=== PATIENT | female | born 1960 | race American Indian/Alaskan Native ===

== ENCOUNTER 2020-07-25 18:02 | Inpatient (IN) | payer OTHER ==
--- NOTE | 2020-07-25 18:08 | Emergency Department Report ---
Blank Doc - Documentation Documentation: 59-year-old female that presents with chest tightness and shortness of breath. Tachycardia and hypertensive in triage. 1- This initial assessment/diagnostic orders/clinical plan/ treatment(s) is/are subject to change based on pt's health status, clinical progression and re-as sessment by fellow clinical providers in the ED. Further treatment and workup at subsequent clinical provers discretion. Patient/guardians urged not to elope from ED as their condition may be serious if not clinically assessed and managed. 2-cardiac work-up
[2020-07-25 18:50] LABS: Alanine Aminotransferase 12 units/L (7-56); Albumin 4.4 g/dL (3.9-5); BUN/Creatinine Ratio 10; Blood Urea Nitrogen 10 mg/dL (7-17); Calcium 9.7 mg/dL (8.4-10.2); Hemolysis Index 4
[2020-07-25 18:54] LABS: Basophils % (Auto) 0.9 % (0.0-1.8); Eosinophils # (Auto) 0.1 K/mm3 (0.0-0.4); Eosinophils % (Auto) 1.5 % (0.0-4.3); Hematocrit 34.9 % (30.3-42.9); Hemoglobin 11.5 gm/dl (10.1-14.3); Lymphocytes # (Auto) 1.7 K/mm3 (1.2-5.4); Lymphocytes % (Auto) 45.6 % (13.4-35.0); Mean Corpuscular HGB Conc 33 % (30-34); Mean Corpuscular Volume 88 fl (79-97); Monocytes # (Auto) 0.3 K/mm3 (0.0-0.8); Monocytes % (Auto) 6.8 % (0.0-7.3); Platelet Count 176 K/mm3 (140-440); Red Blood Count 3.99 M/mm3 (3.65-5.03); Red Cell Distribution Width 14.5 % (13.2-15.2)
[2020-07-25 19:09] LABS: INR 1.07 (0.87-1.13)
[2020-07-25 19:10] LABS: Partial Thromboplastin Time 27.6 Sec. (24.2-36.6)
--- NOTE | 2020-07-25 20:32 | XRay Report ---
CHEST 2 VIEWS INDICATION / CLINICAL INFORMATION: Chest Pain. COMPARISON: None available. FINDINGS: SUPPORT DEVICES: None. HEART / MEDIASTINUM: There is moderate cardiomegaly with a left ventricular configuration. Pulmonary vasculature is normal. There is mild aortic tortuosity without aneurysm. LUNGS / PLEURA: No significant pulmonary or pleural abnormality. No pneumothorax. ADDITIONAL FINDINGS: No significant additional findings. IMPRESSION: Moderate cardiomegaly without acute pulmonary disease. Signer Name: Deshawn Martel MD Signed: 07/25/2020 8:27 PM Workstation Name: [id number]
--- NOTE | 2020-07-25 23:43 | Emergency Department Report ---
ED Shortness of Breath HPI - General Chief Complaint: Dyspnea/Respdistress Stated Complaint: TIERRA Time Seen by Provider: 07/25/20 23:28 Source: patient Mode of arrival: Ambulatory Limitations: No Limitations - History of Present Illness Initial Comments: Patient is a 59-year-old female who presents emergency room with complaints of shortness of breath x2 weeks. Patient states her symptoms are worsening. Patient states her shortness of breath is better with rest and worse with exertion. Patient states she is having dyspnea on exertion. Patient denies chest pain. Patient states she has history of high blood pressure and is noncompliant with her blood pressure medication. Patient that she lost her insurance 6 months ago and has not seen a doctor since. Patient denies headache. Patient denies blurry vision. Patient denies neck stiffness. Patient denies chest pain. Patient denies fever and chills. Patient denies cough. Patient denies recent travel. Patient denies recent international travel. Patient denies exposure to the novel coronavirus. Patient denies sick contacts. Patient denies fever and chills. Patient denies cough. Patient denies diarrhea. Patient denies coming in contact with anybody with symptoms of the novel coronavirus. -: Gradual, week(s) Severity: severe Consistency: constant Improves With: rest Worsens With: exertion Context: medication noncompliance - Related Data Allergies Allergy/AdvReac Type Severity Reaction Status Date / Time No Known Allergies Allergy Verified 07/26/20 04:47 ED Review of Systems ROS: Stated complaint: TIERRA Other details as noted in HPI Constitutional: denies: chills, fever Eyes: denies: eye pain, eye discharge, vision change ENT: denies: ear pain, throat pain Respiratory: shortness of breath, SOB with exertion, SOB at rest. denies: cough, wheezing Cardiovascular: as per HPI, dyspnea on exertion. denies: chest pain, palpitations Endocrine: no symptoms reported Gastrointestinal: denies: abdominal pain, nausea, diarrhea Genitourinary: denies: urgency, dysuria, discharge Musculoskeletal: denies: back pain, joint swelling, arthralgia Skin: denies: rash, lesions Neurological: denies: headache, weakness, paresthesias Psychiatric: denies: anxiety, depression Hematological/Lymphatic: denies: easy bleeding, easy bruising ED Past Medical Hx - Past Medical History Previous Medical History?: Yes Hx Hypertension: Yes - Surgical History Past Surgical History?: Yes Additional Surgical History: CSECTION - Family History Family history: no significant - Social History Smoking Status: Never Smoker Substance Use Type: None ED Physical Exam - General Limitations: No Limitations General appearance: alert, in no apparent distress - Head Head exam: Present: atraumatic, normocephalic - Eye Eye exam: Present: normal appearance - ENT ENT exam: Present: mucous membranes moist - Neck Neck exam: Present: normal inspection - Respiratory Respiratory exam: Present: normal lung sounds bilaterally. Absent: respiratory distress, chest wall tenderness - Cardiovascular Cardiovascular Exam: Present: regular rate, normal rhythm. Absent: systolic murmur, diastolic murmur, rubs, gallop - GI/Abdominal GI/Abdominal exam: Present: soft, normal bowel sounds - Extremities Exam Extremities exam: Present: normal inspection - Back Exam Back exam: Present: normal inspection - Neurological Exam Neurological exam: Present: alert, oriented X3 - Psychiatric Psychiatric exam: Present: normal affect, normal mood - Skin Skin exam: Present: warm, dry, intact, normal color. Absent: rash ED Course Vital Signs 07/25/20 07/25/20 07/25/20 18:07 21:16 21:30 Temperature 98.3 F Pulse Rate 114 H Respiratory 20 Rate Blood Pressure 189/131 O2 Sat by Pulse 96 88 91 Oximetry 07/25/20 07/25/20 07/26/20 22:45 23:52 00:00 Temperature Pulse Rate 100 H 95 H Respiratory 20 14 Rate Blood Pressure 147/99 147/99 198/132 O2 Sat by Pulse 96 97 Oximetry 07/26/20 07/26/20 07/26/20 00:30 01:00 01:25 Temperature Pulse Rate 97 H 101 H Respiratory 18 37 H 18 Rate Blood Pressure 204/135 204/135 O2 Sat by Pulse 95 94 Oximetry 07/26/20 07/26/20 07/26/20 02:00 03:00 04:12 Temperature Pulse Rate 109 H Respiratory 30 H Rate Blood Pressure 190/129 182/143 195/139 O2 Sat by Pulse 97 94 Oximetry - Reevaluation(s) Reevaluation #1: Patient's blood pressure was initially high and then improved on its own. We will continue to monitor blood pressure. 07/26/20 00:06 Reevaluation #2: Patient's blood pressure increased again and the patient was given IV Lasix. Patient found to have an elevated D-dimer and BNP. Patient will have a CTA. 07/26/20 01:50 Reevaluation #3: Patient received IV Lasix. Patient states he is diuresing and urinating a lot. Patient states her shortness of breath and dyspnea on exertion has improved. I discussed all results with patient. I discussed plan of care with patient. Patient agrees with plan of care and admission. Patient to be admitted to the hospitalist service. 07/26/20 04:07 - Consultations Consultation #1: Hospitalist consulted for admission. Hospitalist to admit patient. 07/26/20 04:07 ED Medical Decision Making - Lab Data Result diagrams: 07/25/20 18:15 07/25/20 18:15 - EKG Data -: EKG Interpreted by Me EKG shows normal: sinus rhythm, intervals, QRS complexes, ST-T waves Rate: tachycardia - EKG Data Interpretation: LVH, other (Patient in bigeminy, PVCs, axis deviation) - Radiology Data Radiology results: report reviewed, image reviewed interpreted by me: Chest x-ray: No pneumonia, no pneumothorax, no foreign body, no osseous findings, no acute findings, cardiomegaly noted. CHEST 2 VIEWS INDICATION / CLINICAL INFORMATION: Chest Pain. COMPARISON: None available. FINDINGS: SUPPORT DEVICES: None. HEART / MEDIASTINUM: There is moderate cardiomegaly with a left ventricular configuration. Pulmonary vasculature is normal. There is mild aortic tortuosity without aneurysm. LUNGS / PLEURA: No significant pulmonary or pleural abnormality. No pneumothorax. ADDITIONAL FINDINGS: No significant additional findings. IMPRESSION: Moderate cardiomegaly without acute pulmonary disease. CTA CHEST HISTORY: Chest Pain. COMPARISON: None TECHNIQUE: Routine chest CT angiogram performed utilizing intravenous contrast. MIP/3D reformats were post-processed. CONTRAST: 100 ml of Omnipaque 350 FINDINGS: Heart and Pericardium: Cardiomegaly with reflux into the IVC and hepatic veins. Mild coronary artery calcification. Pulmonary Arteries: Diagnostic pulmonary artery opacification. No significant respiratory motion. No pulmonary emboli seen. Thoracic Aorta: Mildly dilated measuring 3.8 cm. No dissection flap Lymphatics: Prominent tissue at the left anterior mediastinum. Lungs: Mosaic attenuation. Slightly more localized consolidation at the left base medially. Mild vascular congestion. Trachea and Bronchi: No significant abnormality. Osseous Structures: No significant abnormality. Additional Findings: None IMPRESSION: 1. Overall diagnostic examination. Negative for pulmonary embolism. 2. Negative for dissection. Prominent descending thoracic aorta. 3. Mosaic attenuation is likely on the basis of air trapping. Mosaic attenuation is most commonly seen in the setting of air trapping. 4. Suspected mild edema. 5. Possible mild pneumonia right base. 6. Prominent tissue anterior mediastinum. This may be in part due to venous collaterals. Follow-up standard CT chest with contrast is recommended for more complete evaluation. 7. Cardiomegaly with increased central venous pressure and reflux into the IVC/hepatic veins. - Medical Decision Making Patient is a 59-year-old female that presents emergency room with complaints of shortness of breath dyspnea on exertion. Patient's blood pressures also been untreated for many months. Patient had a EKG and chest x-ray. Patient EKG showed trigeminy, LVH but no acute findings and no ST changes. Patient's EKG was abnormal. Patient's chest x-ray showed cardiomegaly no other acute findings. I personally reviewed the EKG and chest x-ray. Patient had labs done which were essentially unremarkable except for an elevated D-dimer and BNP. Patient BNP was 4000. Patient's had a CT angio of the chest to rule out PE since the patient had an elevated D-dimer, shortness of breath and tachycardia. Patient CTA was negative for PE, positive for CHF changes, pulmonary edema and a right-sided pneumonia.. Patient given IV antibiotics. Patient given IV Lasix. Patient admitted to the hospitalist service for further evaluation treatment. Critical care time documented due to the multiple reassessments, prolonged time at the bedside, interpretation of diagnostics and labs. - Differential Diagnosis Shortness of breath, CHF, PE, hypertensive urgency Critical Care Time: Yes Critical care time in (mins) excluding proc time.: 35 Critical care attestation.: If time is entered above; I have spent that time in minutes in the direct care of this critically ill patient, excluding procedure time. Critical Care Time: 35 minutes ED Disposition Clinical Impression: Cardiomegaly, Elevated brain natriuretic peptide (BNP) level, SOB (shortness of breath), MARTI (dyspnea on exertion), Abnormal EKG, Trigeminy, Pulmonary edema cardiac cause, New onset of congestive heart failure, Hypertensive urgency, malignant CHF (congestive heart failure) Qualifiers: Heart failure type: unspecified Heart failure chronicity: acute Qualified Code(s): I50.9 - Heart failure, unspecified Pneumonia Qualifiers: Pneumonia type: due to unspecified organism Laterality: right Lung location: unspecified part of lung Qualified Code(s): J18.9 - Pneumonia, unspecified organism Disposition: 09 OP ADMIT IP TO THIS HOSP Is pt being admited?: Yes Does the pt Need Aspirin: No Condition: Critical Instructions: Pulmonary Edema (ED), Bacterial Pneumonia (ED) Time of Disposition: 04:08
[2020-07-26] MEDS ORDERED: FUROSEMIDE 40 MG/4 ML INJ IV ONE (01:43)
--- NOTE | 2020-07-26 04:04 | Cat Scan Report ---
CTA CHEST HISTORY: Chest Pain. COMPARISON: None TECHNIQUE: Routine chest CT angiogram performed utilizing intravenous contrast. MIP/3D reformats wer e post-processed. CONTRAST: 100 ml of Omnipaque 350 FINDINGS: Heart and Pericardium: Cardiomegaly with reflux into the IVC and hepatic veins. Mild coronary artery calcification. Pulmonary Arteries: Diagnostic pulmonary artery opacification. No significant respiratory motion. No pulmonary emboli seen. Thoracic Aorta: Mildly dilated measuring 3.8 cm. No dissection flap Lymphatics: Prominent tissue at the left anterior mediastinum. Lungs: Mosaic attenuation. Slightly more localized consolidation at the left base medially. Mild vasc ular congestion. Trachea and Bronchi: No significant abnormality. Osseous Structures: No significant abnormality. Additional Findings: None IMPRESSION: 1. Overall diagnostic examination. Negative for pulmonary embolism. 2. Negative for dissection. Prominent descending thoracic aorta. 3. Mosaic attenuation is likely on the basis of air trapping. Mosaic attenuation is most commonly see n in the setting of air trapping. 4. Suspected mild edema. 5. Possible mild pneumonia right base. 6. Prominent tissue anterior mediastinum. This may be in part due to venous collaterals. Follow-up [facility] CT chest with contrast is recommended for more complete evaluation. 7. Cardiomegaly with increased central venous pressure and reflux into the IVC/hepatic veins. Signer Name: Neil Franco MD Signed: 07/26/2020 4:00 AM Workstation Name: [id number]
[2020-07-26] MEDS ORDERED: CEFEPIME/NS 2 GM/100 ML 2 GM/100 ML BAG IV ONE (04:06)
[2020-07-26] MEDS ORDERED: AZITHROMYCIN/NS 500 MG/250 ML 500 MG/250 ML BAG IV ONE (04:07)
[2020-07-26] MEDS ORDERED: hydrALAZINE 20 MG/1 ML INJ IV PRN (04:41)
[2020-07-26] MEDS ORDERED: ACETAMINOPHEN 325 MG TAB PO PRN (04:44)
[2020-07-26] MEDS ORDERED: ONDANSETRON 4 MG/2 ML INJ IV PRN (04:46)
--- NOTE | 2020-07-26 04:52 | History and Physical Report ---
History of Present Illness Date of examination: 07/26/20 Date of admission: 07/26/20 Chief complaint: Chief complaint is shortness of breath History of present illness: History of presenting illness, patient is a 59-year-old female who said that she has been progressively short of breath going on for 2 weeks and noted that the symptom became worse in the last 24 hours, shortness of breath is worse with exertion and better with rest. Patient denied history of chest pain, fever, chills, body aches, nausea and vomiting and patient admitted to not being compliant with her antihypertensive medications and lost her insurance about 6 months ago and has never seen a doctor since then or taking any medication for high blood pressure. Patient denied coming in contact with anybody with COVID- 19 Past History Past Medical History: hypertension Past Surgical History: Social history: no significant social history Family history: no significant family history Medications and Allergies Allergies Allergy/AdvReac Type Severity Reaction Status Date / Time No Known Allergies Allergy Verified 07/26/20 04:47 Active Meds: Active Medications Acetaminophen (Acetaminophen 325 Mg Tab) 650 mg PO Q4H PRN PRN Reason: Fever >101 Carvedilol (Carvedilol 6.25 Mg Tab) 6.25 mg PO BID [facility] Furosemide (Furosemide 40 Mg/4 Ml Inj) 40 mg IV QDAY [facility] Hydralazine HCl (Hydralazine 20 Mg/1 Ml Inj) 10 mg IV Q4HR PRN PRN Reason: Blood Pressure Azithromycin (Zithromax/Ns) 500 mg in 250 mls @ 250 mls/hr IV ONCE ONE; Protocol Stop: 07/26/20 05:06 Cefepime HCl (Cefepime/Ns 2 Gm/100 Ml) 2 gm in 100 mls @ 200 mls/hr IV Q8H [facility]; Protocol Azithromycin (Zithromax/Ns) 500 mg in 250 mls @ 250 mls/hr IV Q24H [facility] Lisinopril (Lisinopril 5 Mg Tab) 5 mg PO QDAY [facility] Nitroglycerin (Nitroglycerin 2% Oint 1 Gm) 0.5 inch TP QIDNTG [facility]; Protocol Ondansetron HCl (Ondansetron 4 Mg/2 Ml Inj) 4 mg IV Q8H PRN PRN Reason: Nausea And Vomiting Review of Systems Constitutional: no fever, no chills, no sweats, no weakness Eyes: bilateral: other (NO BILATERAL EYE SYMPTOMS) Breasts: deferred Cardiovascular: shortness of breath, no chest pain, no orthopnea, no palpitations, no rapid/irregular heart beat, no edema, no syncope, no lightheadedness Respiratory: shortness of breath, dyspnea on exertion, no cough, no cough with sputum, no hemoptysis, no congestion, no wheezing Gastrointestinal: no abdominal pain, no nausea, no vomiting, no constipation Genitourinary Female: no Menstruation: postmenopausal Rectal: no pain Musculoskeletal: no neck stiffness, no neck pain Integumentary: no rash, no pruritis, no redness, no sores Neurological: no paralysis, no weakness, no parathesias, no seizures, no syncope, no vertigo, no headaches, no migraines Psychiatric: no anxiety, no depression Endocrine: no polydipsia, no polyuria, no nocturia, no palpatations Exam - Constitutional Vitals: Temp Pulse Resp BP Pulse Ox 98.3 F 109 H 30 H 195/139 94 07/25/20 18:07 07/26/20 02:00 07/26/20 02:00 07/26/20 04:12 07/26/20 03:00 General appearance: Present: no acute distress - EENT Eyes: Present: PERRL, EOM intact ENT: hearing intact, clear oral mucosa - Neck Neck: Present: supple, normal ROM - Respiratory Respiratory effort: normal - Cardiovascular Rhythm: regular Heart Sounds: Present: S1 & S2. Absent: gallop, systolic murmur, diastolic murmur - Extremities Extremities: no ischemia, No edema Peripheral Pulses: within normal limits - Abdominal General gastrointestinal: Present: soft, non-tender, non-distended. Absent: tender, distended, rigid, hepatomegaly, splenomegaly Female genitourinary: Present: deferred - Rectal Rectal Exam: deferred - Integumentary Integumentary: Present: clear, warm, dry - Musculoskeletal Musculoskeletal: generalized weakness - Psychiatric Psychiatric: appropriate mood/affect HEART Score - HEART Score Risk factors: 1-2 risk factors Troponin: Troponin T < 0.010 ng/mL (0.00-0.029) 07/26/20 00:10 Troponin: < normal limit - Critical Actions Critical Actions: 0-3 pts:0.9-1.7%risk of adverse cardiac event.Candidate for discharge Results - Labs CBC & Chem 7: 07/25/20 18:15 07/25/20 18:15 Labs: Laboratory Last Values WBC 3.8 K/mm3 (4.5-11.0) L 07/25/20 18:15 RBC 3.99 M/mm3 (3.65-5.03) 07/25/20 18:15 Hgb 11.5 gm/dl (10.1-14.3) 07/25/20 18:15 Hct 34.9 % (30.3-42.9) 07/25/20 18:15 MCV 88 fl (79-97) 07/25/20 18:15 MCH 29 pg (28-32) 07/25/20 18:15 MCHC 33 % (30-34) 07/25/20 18:15 RDW 14.5 % (13.2-15.2) 07/25/20 18:15 Plt Count 176 K/mm3 (140-440) 07/25/20 18:15 Lymph % (Auto) 45.6 % (13.4-35.0) H 07/25/20 18:15 [place] % (Auto) 6.8 % (0.0-7.3) 07/25/20 18:15 Eos % (Auto) 1.5 % (0.0-4.3) 07/25/20 18:15 Baso % (Auto) 0.9 % (0.0-1.8) 07/25/20 18:15 Lymph # (Auto) 1.7 K/mm3 (1.2-5.4) 07/25/20 18:15 [place] # (Auto) 0.3 K/mm3 (0.0-0.8) 07/25/20 18:15 Eos # (Auto) 0.1 K/mm3 (0.0-0.4) 07/25/20 18:15 Baso # (Auto) 0.0 K/mm3 (0.0-0.1) 07/25/20 18:15 Seg Neutrophils % 45.2 % (40.0-70.0) 07/25/20 18:15 Seg Neutrophils # 1.7 K/mm3 (1.8-7.7) L 07/25/20 18:15 PT 13.8 Sec. (12.2-14.9) 07/25/20 18:15 INR 1.07 (0.87-1.13) 07/25/20 18:15 APTT 27.6 Sec. (24.2-36.6) 07/25/20 18:15 D-Dimer 392.57 ng/mlDDU (0-234) H 07/26/20 00:10 Sodium 141 mmol/L (137-145) 07/25/20 18:15 Potassium 4.1 mmol/L (3.6-5.0) 07/25/20 18:15 Chloride 105.0 mmol/L (98-107) 07/25/20 18:15 Carbon Dioxide 25 mmol/L (22-30) 07/25/20 18:15 Anion Gap 15 mmol/L 07/25/20 18:15 BUN 10 mg/dL (7-17) 07/25/20 18:15 Creatinine 1.0 mg/dL (0.6-1.2) 07/25/20 18:15 Estimated GFR 57 ml/min 07/25/20 18:15 BUN/Creatinine Ratio 10 % 07/25/20 18:15 Glucose 110 mg/dL (65-100) H 07/25/20 18:15 Calcium 9.7 mg/dL (8.4-10.2) 07/25/20 18:15 Total Bilirubin 0.70 mg/dL (0.1-1.2) 07/25/20 18:15 AST 15 units/L (5-40) 07/25/20 18:15 ALT 12 units/L (7-56) 07/25/20 18:15 Alkaline Phosphatase 61 units/L (35-129) 07/25/20 18:15 Troponin T < 0.010 ng/mL (0.00-0.029) 07/26/20 00:10 NT-Pro-B Natriuret Pep 4061 pg/mL (0-900) H 07/26/20 00:10 Total Protein 7.9 g/dL (6.3-8.2) 07/25/20 18:15 Albumin 4.4 g/dL (3.9-5) 07/25/20 18:15 Albumin/Globulin Ratio 1.3 % 07/25/20 18:15 Assessment and Plan - Patient Problems (1) Hypertensive crisis Current Visit: Yes Status: Acute Plan to address problem: 1 I.V HYDRALAZIE FOR ELEVATED BP 2. NITROPASTE 3 CARVIDILOL PO 4. LISINOPRIL PO (2) CHF (congestive heart failure) Current Visit: Yes Status: Acute Qualifiers: Heart failure type: unspecified Heart failure chronicity: acute Qualified Code(s): I50.9 - Heart failure, unspecified Plan to address problem: 1. SERIAL CARDIAC ENZYMES 2. 2 D ECHOCARDIOGRAM 3. I.V LASIX 4. NITROPASTE 5. CAVIRDILOL PO 6. LISINOPRIL PO (3) Pneumonia Current Visit: Yes Status: Acute Qualifiers: Pneumonia type: due to unspecified organism Laterality: right Lung location: unspecified part of lung Qualified Code(s): J18.9 - Pneumonia, unspecified organism Plan to address problem: 1. I.V CEFEPIME ANTIBIOTIC 2. I.V ZITHROMAX ANTIBIOTIC 3. TYLENOL PO FOR FEVER
[2020-07-26] MEDS: NITROGLYCERIN 2% OINT 1 GM TP SCH ×3 (05:33→15:34)
[2020-07-26] MEDS: hydrALAZINE 25 MG TAB PO SCH ×3 (09:05→22:05)
[2020-07-26] MEDS: FUROSEMIDE 40 MG/4 ML INJ IV SCH (09:09)
[2020-07-26] MEDS: LISINOPRIL 20 MG TAB PO SCH (09:13)
[2020-07-26] MEDS ORDERED: LISINOPRIL 5 MG TAB PO SCH ×2 (10:00)
[2020-07-26] MEDS ORDERED: carvediloL 6.25 MG TAB PO SCH (10:00)
--- NOTE | 2020-07-26 10:49 | Event Note ---
Date: 07/26/20 Detailed cardiology consultation dictated. Pt presented with apparent acute HF and uncontrolled HTN. No known prior cardiac history. Increase coreg dosage, cont lisinopril and IV lasix daily. Await echo. Will follow. Rene DAWSON NP / DR. Obey SIMS
--- NOTE | 2020-07-26 10:56 | Event Note ---
Date: 07/26/20 Patient was admitted earlier this morning. Patient admitted for CHF exacerbation. Patient states she is breathing better today. Continue manage ment as outlined in H&P and cardiology recommendation.
--- NOTE | 2020-07-26 11:17 | Consultation ---
REFERRING PHYSICIAN: Dr. Lebron. REASON FOR CONSULTATION: Advice and opinion regarding shortness of breath. HISTORY OF PRESENT ILLNESS: The patient is a pleasant 59-year-old female with a known history of hypertension, presents here for shortness of breath. Apparently over the last 2-3 weeks, she has developed shortness of breath. Denies any chest pain or chest tightness, shortness of breath with minimal exertion. She denies any orthopnea or PND. No syncope, presyncope or palpitations. No nausea or vomiting. She lost her insurance some 6-8 months ago and has not been on medications since. She primarily takes care of her grandchild and does not currently work. No recent travel or exposure to COVID. ALLERGIES: No known drug, food, or environmental allergies. She is not on any medications at home. INPATIENT MEDICATIONS: Reviewed. SOCIAL HISTORY: She is a nonsmoker, nondrinker. PHYSICAL EXAMINATION: VITAL SIGNS: Blood pressure is currently 150/90. She is afebrile. Tele reveals sinus rhythm in the 80s. O2 sats 96% on room air. GENERAL: This is a middle-aged female, in no apparent distress, oriented x 3. HEENT: Sclerae are anicteric. NECK: Supple, no masses, no JVD. CHEST: Clear to auscultation bilaterally. CARDIOVASCULAR: Regular rhythm, S1, S2. ABDOMEN: Soft, nontender, nondistended. Normoactive bowel sounds in 4 quadrants. No mass or bruits. EXTREMITIES: No cyanosis, clubbing, edema. Good peripheral pulses. SKIN: Intact. No rashes. DATA: Her EKG reveals sinus rhythm, heart rate of 110, frequent unifocal PVCs, LVH with IVCD, left atrial enlargement. D-dimer was mildly elevated. Chest CTA is negative for PE or dissection. Questionable mild pneumonia, right lung base. Mild edema. Troponin is negative x 3. ProBNP is 4061. CBC and BMP yesterday were unremarkable. ASSESSMENT: In summary, the patient is a pleasant 59-year-old female. 1. Likely acute heart failure of unclear etiology. Continue with IV Lasix, on beta blockade and JENNIFER inhibition. Needs better blood pressure control. We will double Coreg to 12.5 twice a day. Salt reduction discussed. The patient is already on antibiotics as well for questionable pneumonia. Check echocardiogram. Primary and secondary prevention measures discussed. We will follow along. JOB# [id number] SBM/NTS
[2020-07-26] MEDS: CEFEPIME/NS 2 GM/100 ML 2 GM/100 ML BAG IV SCH ×2 (12:55→22:04)
[2020-07-26] MEDS: HEPARIN 5,000 UNIT/1 ML VIAL SUB-Q SCH ×2 (15:33→22:05)
[2020-07-26] MEDS: carvediloL 12.5 MG TAB PO SCH (22:07)
[2020-07-27] MEDS: NITROGLYCERIN 2% OINT 1 GM TP SCH ×4 (05:30→17:41)
[2020-07-27] MEDS: CEFEPIME/NS 2 GM/100 ML 2 GM/100 ML BAG IV SCH (05:36)
[2020-07-27] MEDS: HEPARIN 5,000 UNIT/1 ML VIAL SUB-Q SCH ×3 (05:36→21:15)
[2020-07-27] MEDS: hydrALAZINE 25 MG TAB PO SCH ×3 (05:36→21:14)
[2020-07-27] MEDS ORDERED: AZITHROMYCIN/NS 500 MG/250 ML 500 MG/250 ML BAG IV SCH (06:00)
--- NOTE | 2020-07-27 08:48 | Progress Note ---
Assessment and Plan Assessment and plan: (1) Hypertensive crisis Current Visit: Yes Status: Acute Plan to address problem: -Blood pressure is well controlled -Continue current blood pressure medications (2) CHF (congestive heart failure) Current Visit: Yes Status: Acute Qualifiers: Heart failure type: unspecified Heart failure chronicity: acute Qualified Code(s): I50.9 - Heart failure, unspecified Plan to address problem: -Echo was done and showed EF of 30 to 35%, with hypokinesis -Patient is on IV Lasix and other appropriate CHF medications -Cardiology is following (3) Pneumonia Current Visit: Yes Status: Acute Qualifiers: Pneumonia type: due to unspecified organism Laterality: right Lung location: unspecified part of lung Qualified Code(s): J18.9 - Pneumonia, unspecified organism Plan to address problem: -Patient is on azithromycin and Keflex -No fever or leukocytosis Disposition; patient is medically stable and discharge is per cardiology rec ommendations. History Interval history: Patient was seen and evaluated this morning Patient was alert and oriented Shortness of breath is getting better Hospitalist Physical - Physical exam Narrative exam: Not in cardiopulmonary distress. The patient appeared well nourished and normally developed. Vital signs as documented. Head exam is unremarkable. No scleral icterus . Neck is without jugular venous distension, thyromegaly, or carotid bruits. Lungs are clear to auscultation. Cardiac exam reveals regular rate and Rhythm. Abdominal exam reveals normal bowel sounds, nontender, no organomegaly. Extremities are nonedematous and both femoral and pedal pulses are normal. SURVEILLANCE TECHNICIAN: Alert and oriented 3. No focal weakness. - Constitutional Vitals: Temp Pulse Resp BP Pulse Ox 97.8 F 66 15 114/71 94 07/27/20 08:17 07/27/20 08:17 07/27/20 08:17 07/27/20 08:17 07/27/20 08:17 General appearance: Present: no acute distress HEART Score - HEART Score Risk factors: 1-2 risk factors Troponin: Troponin T < 0.010 ng/mL (0.00-0.029) 07/26/20 11:27 Troponin: < normal limit - Critical Actions Critical Actions: 0-3 pts:0.9-1.7%risk of adverse cardiac event.Candidate for discharge Results - Labs CBC & Chem 7: 07/25/20 18:15 07/27/20 04:59 Labs: Laboratory Last Values WBC 3.8 K/mm3 (4.5-11.0) L 07/25/20 18:15 RBC 3.99 M/mm3 (3.65-5.03) 07/25/20 18:15 Hgb 11.5 gm/dl (10.1-14.3) 07/25/20 18:15 Hct 34.9 % (30.3-42.9) 07/25/20 18:15 MCV 88 fl (79-97) 07/25/20 18:15 MCH 29 pg (28-32) 07/25/20 18:15 MCHC 33 % (30-34) 07/25/20 18:15 RDW 14.5 % (13.2-15.2) 07/25/20 18:15 Plt Count 176 K/mm3 (140-440) 07/25/20 18:15 Lymph % (Auto) 45.6 % (13.4-35.0) H 07/25/20 18:15 [place] % (Auto) 6.8 % (0.0-7.3) 07/25/20 18:15 Eos % (Auto) 1.5 % (0.0-4.3) 07/25/20 18:15 Baso % (Auto) 0.9 % (0.0-1.8) 07/25/20 18:15 Lymph # (Auto) 1.7 K/mm3 (1.2-5.4) 07/25/20 18:15 [place] # (Auto) 0.3 K/mm3 (0.0-0.8) 07/25/20 18:15 Eos # (Auto) 0.1 K/mm3 (0.0-0.4) 07/25/20 18:15 Baso # (Auto) 0.0 K/mm3 (0.0-0.1) 07/25/20 18:15 Seg Neutrophils % 45.2 % (40.0-70.0) 07/25/20 18:15 Seg Neutrophils # 1.7 K/mm3 (1.8-7.7) L 07/25/20 18:15 PT 13.8 Sec. (12.2-14.9) 07/25/20 18:15 INR 1.07 (0.87-1.13) 07/25/20 18:15 APTT 27.6 Sec. (24.2-36.6) 07/25/20 18:15 D-Dimer 392.57 ng/mlDDU (0-234) H 07/26/20 00:10 Sodium Sales Support Assistant 07/27/20 04:59 Potassium Not Reportable 07/27/20 04:59 Chloride Sales Support Assistant 07/27/20 04:59 Carbon Dioxide Sales Support Assistant 07/27/20 04:59 Anion Gap Sales Support Assistant 07/27/20 04:59 BUN Sales Support Assistant 07/27/20 04:59 Creatinine Sales Support Assistant 07/27/20 04:59 Estimated GFR Sales Support Assistant 07/27/20 04:59 BUN/Creatinine Ratio Sales Support Assistant 07/27/20 04:59 Glucose Sales Support Assistant 07/27/20 04:59 Calcium Sales Support Assistant 07/27/20 04:59 Total Bilirubin 0.70 mg/dL (0.1-1.2) 07/25/20 18:15 AST 15 units/L (5-40) 07/25/20 18:15 ALT 12 units/L (7-56) 07/25/20 18:15 Alkaline Phosphatase 61 units/L (35-129) 07/25/20 18:15 Total Creatine Kinase 102 units/L (30-135) 07/26/20 11:27 CK-MB (CK-2) 2.0 ng/mL (0.0-4.0) 07/26/20 11:27 CK-MB (CK-2) Rel Index 1.9 (0-4) 07/26/20 11:27 Troponin T < 0.010 ng/mL (0.00-0.029) 07/26/20 11:27 NT-Pro-B Natriuret Pep 4061 pg/mL (0-900) H 07/26/20 00:10 Total Protein 7.9 g/dL (6.3-8.2) 07/25/20 18:15 Albumin 4.4 g/dL (3.9-5) 07/25/20 18:15 Albumin/Globulin Ratio 1.3 % 07/25/20 18:15 Britton/IV: Voiding Method Toilet Active Medications - Current Medications Current Medications: Generic Name Dose Route Start Last Admin Trade Name Freq PRN Reason Stop Dose Admin Acetaminophen 650 mg 07/26/20 04:44 Acetaminophen 325 Mg Tab PO Q4H PRN Fever >101 Azithromycin 250 mg 07/27/20 10:00 Azithromycin 250 Mg Tab PO QDAY [facility] Protocol Carvedilol 12.5 mg 07/26/20 22:00 07/26/20 22:07 Carvedilol 12.5 Mg Tab PO 12.5 mg BID JANKI Administration Cephalexin 500 mg 07/27/20 09:00 Cephalexin 500 Mg Cap PO Q8HR [facility] Protocol Furosemide 40 mg 07/26/20 10:00 07/26/20 09:09 Furosemide 40 Mg/4 Ml Inj IV 40 mg QDAY [facility] Administration Heparin Sodium (Porcine) 5,000 unit 07/26/20 14:00 07/27/20 05:36 Heparin 5,000 Unit/1 Ml Vial SUB-Q 5,000 unit Q8HR [facility] Administration Hydralazine HCl 10 mg 07/26/20 04:41 Hydralazine 20 Mg/1 Ml Inj IV Q4HR PRN Blood Pressure Hydralazine HCl 50 mg 07/26/20 08:00 07/27/20 05:36 Hydralazine 25 Mg Tab PO 50 mg Q8HR JANKI Administration Lisinopril 20 mg 07/26/20 10:00 07/26/20 09:13 Lisinopril 20 Mg Tab PO 20 mg QDAY [facility] Administration Nitroglycerin 0.5 inch 07/26/20 06:00 07/27/20 05:30 Nitroglycerin 2% Oint 1 Gm TP Not Given QIDNTG [facility] Protocol Ondansetron HCl 4 mg 07/26/20 04:46 Ondansetron 4 Mg/2 Ml Inj IV Q8H PRN Nausea And Vomiting
[2020-07-27] MEDS: AZITHROMYCIN 250 MG TAB PO SCH (10:42)
[2020-07-27] MEDS: carvediloL 12.5 MG TAB PO SCH ×2 (10:43→21:15)
[2020-07-27] MEDS: cephALEXin 500 MG CAP PO SCH ×3 (10:43→21:14)
[2020-07-27] MEDS: FUROSEMIDE 40 MG/4 ML INJ IV SCH (10:43)
[2020-07-27] MEDS: LISINOPRIL 20 MG TAB PO SCH (10:45)
--- NOTE | 2020-07-27 13:47 | Progress Note ---
Assessment and Plan - Patient Problems (1) CHF (congestive heart failure) Current Visit: Yes Status: Acute Qualifiers: Heart failure type: systolic Heart failure chronicity: acute Qualified Code(s): I50.21 - Acute systolic (congestive) heart failure Plan to address problem: Patient needs to have ischemic work-up either this admission or following discharge as an outpatient. Advised not to take any alcohol and to lose weight. Subjective Date of service: 07/27/20 Interval history: Patient is feeling better regarding shortness of breath. No chest pain. She has a progressive shortness of breath for last 3 weeks. Objective Vital Signs Temp Pulse Resp BP BP Pulse Ox 07/27/20 11:50 97.7 F 73 15 133/84 95 07/27/20 10:45 66 114/71 07/27/20 10:43 66 114/71 07/27/20 10:42 66 114/71 07/27/20 08:17 97.8 F 66 15 114/71 94 07/27/20 05:36 113/71 07/27/20 04:41 97.5 F L 56 L 18 113/71 96 07/26/20 23:55 97.8 F 59 L 18 119/72 88 07/26/20 23:00 98 07/26/20 22:07 76 126/78 07/26/20 22:05 76 126/78 07/26/20 20:25 99.6 F 82 18 126/78 93 07/26/20 15:34 78 114/66 07/26/20 15:32 78 114/66 07/26/20 14:51 79 18 114/66 - Physical Examination General: Appears Well Neck: Negative: JVD/HJR Cardiac: Positive: Reg Rate and Rhythm, S3 Lungs: Positive: clear to auscultation Neuro: Positive: Grossly Intact Abdomen: Positive: Unremarkable Extremities: Present: normal - Labs and Meds Comprehensive Metabolic Panel 07/27/20 Range/Units 04:59 Sodium Cinetechnician Potassium Not Reportable Chloride [place] Carbon Dioxide [place] BUN [place] Creatinine [place] Glucose [place]inet[place] Calcium Cinetechnician - Imaging and Cardiology EKG: report reviewed Echo: report reviewed (EF 30-35%)
[2020-07-28 05:20] LABS: BUN/Creatinine Ratio 22; Blood Urea Nitrogen 20 mg/dL (7-17); Hemolysis Index 0
[2020-07-28] MEDS: HEPARIN 5,000 UNIT/1 ML VIAL SUB-Q SCH ×3 (06:38→22:40)
[2020-07-28] MEDS: cephALEXin 500 MG CAP PO SCH ×3 (06:38→22:40)
[2020-07-28] MEDS: NITROGLYCERIN 2% OINT 1 GM TP SCH ×4 (06:39→22:42)
[2020-07-28] MEDS: hydrALAZINE 25 MG TAB PO SCH ×3 (06:40→22:40)
[2020-07-28] MEDS: AZITHROMYCIN 250 MG TAB PO SCH (09:19)
[2020-07-28] MEDS: LISINOPRIL 20 MG TAB PO SCH (09:19)
[2020-07-28] MEDS: carvediloL 12.5 MG TAB PO SCH ×2 (09:19→22:42)
[2020-07-28] MEDS: FUROSEMIDE 40 MG/4 ML INJ IV SCH (09:20)
[2020-07-28] MEDS ORDERED: POTASSIUM CHLORIDE ER 10 MEQ TAB PO ONE (09:23)
--- NOTE | 2020-07-28 09:26 | Progress Note ---
Assessment and Plan Assessment and plan: (1) Hypertensive crisis Current Visit: Yes Status: Acute Plan to address problem: -Blood pressure is well controlled -Continue current blood pressure medications (2) CHF (congestive heart failure) Current Visit: Yes Status: Acute Qualifiers: Heart failure type: unspecified Heart failure chronicity: acute Qualified Code(s): I50.9 - Heart failure, unspecified Plan to address problem: -Echo was done and showed EF of 30 to 35%, with hypokinesis -Patient is on IV Lasix and other appropriate CHF medications -Cardiology is following (3) Pneumonia Current Visit: Yes Status: Acute Qualifiers: Pneumonia type: due to unspecified organism Laterality: right Lung location: unspecified part of lung Qualified Code(s): J18.9 - Pneumonia, unspecified organism Plan to address problem: -Patient is on azithromycin and Keflex -No fever or leukocytosis Disposition; patient is medically stable and discharge is per cardiology rec ommendations. 07/28/2020 -Blood pressure is controlled; continue current medication regimen -Patient's shortness of breath resolved; continue appropriate CHF medications -Patient is on antibiotics for pneumonia -Discussed with Dr. Stephenson and he wants the patient to have ischemic work-up before discharge, because patient is uninsured and may not follow as an outpatient. -Hypokalemia, repleted. History Interval history: Patient was seen and evaluated this morning Patient was alert and oriented Shortness of breath resolved Hospitalist Physical - Physical exam Narrative exam: Not in cardiopulmonary distress. The patient appeared well nourished and normally developed. Vital signs as documented. Head exam is unremarkable. No scleral icterus . Neck is without jugular venous distension, thyromegaly, or carotid bruits. Lungs are clear to auscultation. Cardiac exam reveals regular rate and Rhythm. Abdominal exam reveals normal bowel sounds, nontender, no organomegaly. Extremities are nonedematous and both femoral and pedal pulses are normal. TUBE TEST TECHNICIAN: Alert and oriented 3. No focal weakness. - Constitutional Vitals: Temp Pulse Resp BP Pulse Ox 97.7 F 69 12 128/72 96 07/28/20 07:41 07/28/20 07:41 07/28/20 07:41 07/28/20 07:41 07/28/20 07:41 General appearance: Present: no acute distress HEART Score - HEART Score Risk factors: 1-2 risk factors Troponin: Troponin T < 0.010 ng/mL (0.00-0.029) 07/26/20 11:27 Troponin: < normal limit - Critical Actions Critical Actions: 0-3 pts:0.9-1.7%risk of adverse cardiac event.Candidate for discharge Results - Labs CBC & Chem 7: 07/25/20 18:15 07/28/20 04:38 Labs: Laboratory Last Values WBC 3.8 K/mm3 (4.5-11.0) L 07/25/20 18:15 RBC 3.99 M/mm3 (3.65-5.03) 07/25/20 18:15 Hgb 11.5 gm/dl (10.1-14.3) 07/25/20 18:15 Hct 34.9 % (30.3-42.9) 07/25/20 18:15 MCV 88 fl (79-97) 07/25/20 18:15 MCH 29 pg (28-32) 07/25/20 18:15 MCHC 33 % (30-34) 07/25/20 18:15 RDW 14.5 % (13.2-15.2) 07/25/20 18:15 Plt Count 176 K/mm3 (140-440) 07/25/20 18:15 Lymph % (Auto) 45.6 % (13.4-35.0) H 07/25/20 18:15 Hayes % (Auto) 6.8 % (0.0-7.3) 07/25/20 18:15 Eos % (Auto) 1.5 % (0.0-4.3) 07/25/20 18:15 Baso % (Auto) 0.9 % (0.0-1.8) 07/25/20 18:15 Lymph # (Auto) 1.7 K/mm3 (1.2-5.4) 07/25/20 18:15 [place] # (Auto) 0.3 K/mm3 (0.0-0.8) 07/25/20 18:15 Eos # (Auto) 0.1 K/mm3 (0.0-0.4) 07/25/20 18:15 Baso # (Auto) 0.0 K/mm3 (0.0-0.1) 07/25/20 18:15 Seg Neutrophils % 45.2 % (40.0-70.0) 07/25/20 18:15 Seg Neutrophils # 1.7 K/mm3 (1.8-7.7) L 07/25/20 18:15 PT 13.8 Sec. (12.2-14.9) 07/25/20 18:15 INR 1.07 (0.87-1.13) 07/25/20 18:15 APTT 27.6 Sec. (24.2-36.6) 07/25/20 18:15 D-Dimer 392.57 ng/mlDDU (0-234) H 07/26/20 00:10 Sodium 138 mmol/L (137-145) 07/28/20 04:38 Potassium 3.5 mmol/L (3.6-5.0) L 07/28/20 04:38 Chloride 104.8 mmol/L (98-107) 07/28/20 04:38 Carbon Dioxide 24 mmol/L (22-30) 07/28/20 04:38 Anion Gap 13 mmol/L 07/28/20 04:38 BUN 20 mg/dL (7-17) H 07/28/20 04:38 Creatinine 0.9 mg/dL (0.6-1.2) 07/28/20 04:38 Estimated GFR > 60 ml/min 07/28/20 04:38 BUN/Creatinine Ratio 22 % 07/28/20 04:38 Glucose 101 mg/dL (65-100) H 07/28/20 04:38 Calcium 9.0 mg/dL (8.4-10.2) 07/28/20 04:38 Total Bilirubin 0.70 mg/dL (0.1-1.2) 07/25/20 18:15 AST 15 units/L (5-40) 07/25/20 18:15 ALT 12 units/L (7-56) 07/25/20 18:15 Alkaline Phosphatase 61 units/L (35-129) 07/25/20 18:15 Total Creatine Kinase 102 units/L (30-135) 07/26/20 11:27 CK-MB (CK-2) 2.0 ng/mL (0.0-4.0) 07/26/20 11:27 CK-MB (CK-2) Rel Index 1.9 (0-4) 07/26/20 11:27 Troponin T < 0.010 ng/mL (0.00-0.029) 07/26/20 11:27 NT-Pro-B Natriuret Pep 4061 pg/mL (0-900) H 07/26/20 00:10 Total Protein 7.9 g/dL (6.3-8.2) 07/25/20 18:15 Albumin 4.4 g/dL (3.9-5) 07/25/20 18:15 Albumin/Globulin Ratio 1.3 % 07/25/20 18:15 Britton/IV: Voiding Method Toilet Active Medications - Current Medications Current Medications: Generic Name Dose Route Start Last Admin Trade Name Freq PRN Reason Stop Dose Admin Acetaminophen 650 mg 07/26/20 04:44 Acetaminophen 325 Mg Tab PO Q4H PRN Fever >101 Azithromycin 250 mg 07/27/20 10:00 07/28/20 09:19 Azithromycin 250 Mg Tab PO 250 mg QDAY JANKI Administration Protocol Carvedilol 12.5 mg 07/26/20 22:00 07/28/20 09:19 Carvedilol 12.5 Mg Tab PO 12.5 mg BID JANKI Administration Cephalexin 500 mg 07/27/20 09:00 07/28/20 06:38 Cephalexin 500 Mg Cap PO 500 mg Q8HR JANKI Administration Protocol Furosemide 40 mg 07/26/20 10:00 07/28/20 09:20 Furosemide 40 Mg/4 Ml Inj IV 40 mg QDAY JANKI Administration Heparin Sodium (Porcine) 5,000 unit 07/26/20 14:00 07/28/20 06:38 Heparin 5,000 Unit/1 Ml Vial SUB-Q 5,000 unit Q8HR JANKI Administration Hydralazine HCl 10 mg 07/26/20 04:41 Hydralazine 20 Mg/1 Ml Inj IV Q4HR PRN Blood Pressure Hydralazine HCl 50 mg 07/26/20 08:00 07/28/20 06:40 Hydralazine 25 Mg Tab PO Not Given Q8HR JANKI Lisinopril 20 mg 07/26/20 10:00 07/28/20 09:19 Lisinopril 20 Mg Tab PO 20 mg QDAY [facility] Administration Nitroglycerin 0.5 inch 07/26/20 06:00 07/28/20 06:39 Nitroglycerin 2% Oint 1 Gm TP Not Given QIDNTG [facility] Protocol Ondansetron HCl 4 mg 07/26/20 04:46 Ondansetron 4 Mg/2 Ml Inj IV Q8H PRN Nausea And Vomiting Potassium Chloride 30 meq 07/28/20 09:23 Potassium Chloride Er 10 Meq Tab PO 07/28/20 09:24 ONCE ONE
--- NOTE | 2020-07-28 14:29 | Progress Note ---
Assessment and Plan - Patient Problems (1) CHF (congestive heart failure) Current Visit: Yes Status: Acute Qualifiers: Heart failure type: systolic Heart failure chronicity: acute Qualified Code(s): I50.21 - Acute systolic (congestive) heart failure Plan to address problem: Patient needs to have ischemic work-up either this admission or following discharge as an outpatient. Advised not to take any alcohol and to lose weight. Patient is scheduled to have myocardial perfusion imaging in the morning. Subjective Date of service: 07/28/20 Interval history: NO CP or shortness of breath. Objective Vital Signs Temp Pulse Resp BP Pulse Ox 07/28/20 14:02 104/56 07/28/20 11:27 98.6 F 68 15 101/66 94 07/28/20 07:41 97.7 F 69 12 128/72 96 07/28/20 07:35 98.2 F 66 12 119/76 93 07/28/20 07:00 56 L 07/28/20 06:40 60 93/61 07/28/20 06:39 60 93/61 07/28/20 04:46 97.5 F L 51 L 16 93/61 96 07/27/20 23:33 97.9 F 68 20 111/73 90 07/27/20 22:00 72 07/27/20 21:15 78 119/76 07/27/20 21:14 78 119/76 07/27/20 19:10 97.6 F 76 24 119/76 95 07/27/20 17:41 73 133/84 07/27/20 16:28 98.0 F 65 12 107/59 93 07/27/20 14:40 73 133/84 07/27/20 14:39 73 133/84 07/27/20 14:00 66 - Physical Examination General: Appears Well Neck: Negative: JVD/HJR Neuro: Positive: Grossly Intact Abdomen: Positive: Unremarkable Extremities: Present: normal - Labs and Meds Comprehensive Metabolic Panel 07/28/20 Range/Units 04:38 Sodium 138 (137-145) mmol/L Potassium 3.5 L (3.6-5.0) mmol/L Chloride 104.8 (98-107) mmol/L Carbon Dioxide 24 (22-30) mmol/L BUN 20 H (7-17) mg/dL Creatinine 0.9 (0.6-1.2) mg/dL Glucose 101 H (65-100) mg/dL Calcium 9.0 (8.4-10.2) mg/dL - Imaging and Cardiology EKG: report reviewed Echo: report reviewed (EF 30-35%)
[2020-07-29 05:44] LABS: BUN/Creatinine Ratio 23; Blood Urea Nitrogen 18 mg/dL (7-17); Calcium 9.1 mg/dL (8.4-10.2); Hemolysis Index 5
[2020-07-29] MEDS: HEPARIN 5,000 UNIT/1 ML VIAL SUB-Q SCH (06:26)
[2020-07-29] MEDS ORDERED: REGADENOSON 0.4 MG/5 ML INJ IV ONE (07:36)
[2020-07-29] MEDS: NITROGLYCERIN 2% OINT 1 GM TP SCH ×2 (07:55→10:00)
[2020-07-29] MEDS: AZITHROMYCIN 250 MG TAB PO SCH (09:59)
[2020-07-29] MEDS: carvediloL 12.5 MG TAB PO SCH (09:59)
[2020-07-29] MEDS: cephALEXin 500 MG CAP PO SCH (09:59)
[2020-07-29] MEDS: FUROSEMIDE 40 MG/4 ML INJ IV SCH (09:59)
[2020-07-29] MEDS: LISINOPRIL 20 MG TAB PO SCH (09:59)
[2020-07-29] MEDS: hydrALAZINE 25 MG TAB PO SCH (09:59)
--- NOTE | 2020-07-29 10:39 | Discharge Summary ---
Providers - Providers Date of Admission: 07/28/20 11:45 Attending physician: LEENA HADLEY MD 07/26/20 07:45 Consult to Physician [CONS] Routine Comment: Consulting Provider: TONO GOMEZ Physician Instructions: Reason For Exam: New onset CHF Primary care physician: VESSEL MASTER Hospitalization Reason for admission: Shortness of breath Condition: Stable Hospital course: patient is a 59-year-old female who said that she has been progressively short of breath going on for 2 weeks and noted that the symptom became worse in the last 24 hours, shortness of breath is worse with exertion and better with rest. Patient denied history of chest pain, fever, chills, body aches, nausea and vomiting and patient admitted to not being compliant with her antihypertensive medications and lost her insurance about 6 months ago and has never seen a doctor since then or taking any medication for high blood pressure. Patient denied coming in contact with anybody with COVID-19 Patient was treated for hypertensive crisis blood pressure is better improved. Patient underwent stress test which showed nonischemic cardiomyopathy this was discussed with the patient in detail she is to follow-up with the clinical rn manager she verbalized understanding. I also gave her extensive advice about alcohol use she verbalized understanding and will quit EtOH use. 07/28/2020 -Blood pressure is controlled; continue current medication regimen -Patient's shortness of breath resolved; continue appropriate CHF medications -Patient is on antibiotics for pneumonia -Discussed with Dr. Stephenson and he wants the patient to have ischemic work-up before discharge, because patient is uninsured and may not follow as an outpatient. -Hypokalemia, repleted. Nonischemic cardiomyopathy Acute systolic congestive heart failure Pneumonia without evidence of sepsis EtOH use disorder Disposition: DC-01 TO HOME OR SELFCARE Final Discharge Diagnosis (Prints w/discharge instructions): Nonischemic cardiomyopathy Time spent for discharge: 35-minute Core Measure Documentation - Palliative Care Palliative Care/ Comfort Measures: Not Applicable - Core Measures Any of the following diagnoses?: heart failure - Heart Failure Discharge Requirements JENNIFER/ARB for LVSD if EF <40%: Yes Beta bennett at discharge: Yes Exam - Physical Exam Narrative exam: VITAL SIGNS: Reviewed. GENERAL: The patient appears normally developed, Vital signs as documented. HEAD: No signs of head trauma. EYES: Pupils are equal. Extraocular motions intact. EARS: Hearing grossly intact. MOUTH: Oropharynx is normal. NECK: No adenopathy, no JVD. CHEST: Chest with clear breath sounds bilaterally. No wheezes, rales, or rhonchi. CARDIAC: Regular rate and rhythm. S1 and S2, without murmurs, gallops, or rubs. VASCULAR: Trace edema. Peripheral pulses normal and equal in all extremities. ABDOMEN: Soft, non tender and non distended. No rebound or guarding, and no masses palpated. Bowel Sounds normal. MUSCULOSKELETAL: Good range of motion of all major joints. Extremities without clubbing, cyanosis. Bilateral traceor edema. NEUROLOGIC EXAM: Alert and oriented x 3 No focal sensory or strength deficits. Speech normal. Follows commands. PSYCHIATRIC: Mood normal. SKIN: detail exam as documented in skin assessment - Constitutional Vitals: Temp Pulse Resp BP Pulse Ox 97.5 F L 49 L 16 119/81 95 07/29/20 05:14 07/29/20 10:00 07/29/20 05:14 07/29/20 05:14 07/29/20 05:14 Plan Activity: advance as tolerated, fall precautions Diet: low salt Special Instructions: record daily weights, record daily BP diary Follow up with: PRIMARY CAREMD [Primary Care Provider] - 3-5 Days TONO GOMEZ MD [Staff Physician] - 7 Days [facility] [Outside] - 7 Days Prescriptions: hydrALAZINE [Apresoline TAB] 50 mg PO Q8HR #90 tablet carvediloL [Coreg] 12.5 mg PO BID #60 tablet cephALEXin [Keflex] 500 mg PO Q8HR #14 capsule Furosemide [Lasix] 20 mg PO QDAY #30 tablet lisinopriL [Zestril TAB] 20 mg PO QDAY #30 tablet Azithromycin [Zithromax TAB] 250 mg PO QDAY #10 tablet
--- NOTE | 2020-07-29 12:03 | Progress Note ---
Assessment and Plan Pt is a new onset HFrEF. She presented with SOB x 2 weeks. She reports hx of HTN, noncompliant with medications x 6 months. Continue ACEI, BB. IV Lasix converted to PO. Lexiscan MPI Stress Test (07/29/20): negative for ischemia, EF 23%. Echo 07/26/20: EF 30-35%. LV function is moderately decreased. Moderate global LV hyokinesis. Mild LVH. Mild AR, Mild MR. Currently stable cardiac status. Pt appears to be nearing euvolemia. Pt may discharge from cardiology standpoint. f/u with Dr Pat Rodarte in our [place] office on 08/16/20 at 2pm. This patient was seen in conjunction with Dr Faulkner who agrees with this assessment and plan. - Patient Problems (1) HFrEF (heart failure with reduced ejection fraction) Current Visit: Yes Status: Chronic (2) Non-ischemic cardiomyopathy Current Visit: Yes Status: Chronic (3) HTN (hypertension) Current Visit: Yes Status: Acute (4) Noncompliance Current Visit: Yes Status: Chronic Subjective Date of service: 07/29/20 Principal diagnosis: HFrEF Interval history: Patient is resting in bed comfortably, Alert and oriented. No new cardiac complaints. Tele reviewed: SR, HR 77. Overnight low HR 44 SB. Objective Last Vital Signs Temp 97.5 F L 07/29/20 05:14 Pulse 49 L 07/29/20 10:00 Resp 16 07/29/20 05:14 BP 119/81 07/29/20 05:14 Pulse Ox 95 07/29/20 05:14 - Physical Examination General: Appears Well Neck: Negative: JVD/HJR Neuro: Positive: Grossly Intact Abdomen: Positive: Unremarkable Extremities: Present: normal - Labs and Meds Comprehensive Metabolic Panel 07/29/20 Range/Units 05:02 Sodium 140 (137-145) mmol/L Potassium 4.0 (3.6-5.0) mmol/L Chloride 107.0 (98-107) mmol/L Carbon Dioxide 24 (22-30) mmol/L BUN 18 H (7-17) mg/dL Creatinine 0.8 (0.6-1.2) mg/dL Glucose 91 (65-100) mg/dL Calcium 9.1 (8.4-10.2) mg/dL - Imaging and Cardiology EKG: report reviewed Echo: report reviewed (Echo 07/26/20: EF 30-35%. LV function is moderately decreased. Moderate global LV hyokinesis. Mild LVH. Mild AR, Mild MR.) - Telemetry EKG Rhythm: Sinus Rhythm
[2020-07-29 12:36] VITALS: BP 92/62
[2020-07-30] MEDS ORDERED: FUROSEMIDE 20 MG TAB PO SCH (06:00)
== END 2020-07-29 16:03 | disposition home or self-care (01) | DRG 291 ==
LOC: ED 18:02 → 4A 07-26 04:31 → OBSVTOIN 07-28 11:45
PROVIDERS: ADMIT Internal Medicine; ATTEND Internal Medicine
DX: I11.0 Hypertensive heart disease with heart failure (principal); I50.21 Acute systolic (congestive) heart failure; J18.9 Pneumonia, unspecified organism; I16.9 Hypertensive crisis, unspecified; R94.31 Abnormal electrocardiogram [ECG] [EKG]; I42.8 Other cardiomyopathies; E87.6 Hypokalemia; Z91.19 Patient's noncompliance with other medical treatment and regimen; Z98.891 History of uterine scar from previous surgery
CPT/HCPCS: 36415; 71046; 71275; 78452; 80048; 80053; 82550; 82553; 83880; 84484; 85025; 85379; 85610; 85730; 93005; 93017; 93306; 96365; 96375; G0378; A9502; J0456; J0692; J1644; J1940; J2785; Q9967

== ENCOUNTER 2021-02-13 08:34 | Observation (INO) | payer BC, OTHER ==
[~2021-02-13 08:34] MED LIST: LIDOCAINE MPF (2%) 20 MG/1 ML VIAL 5 ML ONE
--- NOTE | 2021-02-13 09:20 | Short Stay Summary ---
Short Stay Documentation Date of service: 02/13/21 - History Principal diagnosis: NICMP H&P: obtained from office Past Medical History: heart failure, hypertension, other (NICMP) Past Surgical History: no CABG, no PTCA Social history: alcohol abuse (occasional liquor), no smoking - Allergies and Medications Current Medications: Allergies No Known Allergies Allergy (Verified 07/26/20 04:47) Home Medications Medication Instructions Recorded Confirmed Last Taken Type Azithromycin [Zithromax TAB] 250 mg PO QDAY #10 tablet 07/29/20 Unknown Rx Furosemide [Lasix] 20 mg PO QDAY #30 tablet 07/29/20 Unknown Rx carvediloL [Coreg] 12.5 mg PO BID #60 tablet 07/29/20 Unknown Rx cephALEXin [Keflex] 500 mg PO Q8HR #14 capsule 07/29/20 Unknown Rx hydrALAZINE [Apresoline TAB] 50 mg PO Q8HR #90 tablet 07/29/20 Unknown Rx lisinopriL [Zestril TAB] 20 mg PO QDAY #30 tablet 07/29/20 Unknown Rx - Physical exam General appearance: no acute distress Integumentary: no rash HEENT: Atraumatic, EOMI, Mucous membr. moist/pink Lungs: Clear to auscultation Heart: Normal S1, Normal S2, No murmurs Gastrointestinal: normal Extremities: pulses intact, No edema, normal temperature Neurological: Normal speech, Normal tone, Sensation intact - Brief post op/procedure progress note Date of procedure: 02/13/21 Pre-op diagnosis: NICMP Post-op diagnosis: other (S/p ICD Implantation) Surgeon: JULIO C GARCIA Estimated blood loss: minimal Pathology: none Condition: stable - Hospital course Hospital course: Pt presented for elective ICD implantation in the setting of NICMP. See operative report. Pt tolerated procedure well. Currently stable with no complaints. Anticipate discharge in AM. Follow-up for incision check on 02/24/2021 @ 8am ([phone]). - Disposition Condition at discharge: Good Disposition: 01 HOME / SELF CARE / HOMELESS - Discharge Diagnoses (1) S/P ICD (internal cardiac defibrillator) procedure Status: Acute (2) Non-ischemic cardiomyopathy Status: Chronic (3) Chronic HFrEF (heart failure with reduced ejection fraction) Status: Chronic (4) HTN (hypertension) Status: Chronic Qualifiers: Hypertension type: primary hypertension Qualified Code(s): I10 - Essential (primary) hypertension Short Stay Discharge Plan Activity: advance as tolerated Diet: low fat, low cholesterol, low salt Wound: per your surgeon's advice Follow up with: TERRA MAK FNP [Primary Care Provider] - 7 Days TIP SIMS MD [Staff Physician] - 02/24/21 8:00 am (Incision Check)
[2021-02-13] MEDS ORDERED: SODIUM CHLORIDE IRRI 1000 ML 1,000 ML, .VANCOMYCIN VIAL 1,000 MG IR NR (09:32)
[2021-02-13 09:58] LABS: Basophils % (Auto) 0.8 % (0.0-1.8); Eosinophils # (Auto) 0.1 K/mm3 (0.0-0.4); Hematocrit 38.2 % (30.3-42.9); Hemoglobin 12.3 gm/dl (10.1-14.3); Lymphocytes # (Auto) 1.8 K/mm3 (1.2-5.4); Lymphocytes % (Auto) 48.1 % (13.4-35.0); Mean Corpuscular HGB Conc 32 % (30-34); Mean Corpuscular Volume 88 fl (79-97); Monocytes # (Auto) 0.2 K/mm3 (0.0-0.8); Monocytes % (Auto) 6.6 % (0.0-7.3); Platelet Count 176 K/mm3 (140-440); Red Blood Count 4.33 M/mm3 (3.65-5.03)
[2021-02-13 10:18] LABS: Blood Urea Nitrogen 17 mg/dL (7-17); Calcium 9.4 mg/dL (8.4-10.2); Hemolysis Index 189
[2021-02-13 10:28] LABS: BUN/Creatinine Ratio 24
[2021-02-13 10:46] LABS: INR 0.91 (0.87-1.13)
[2021-02-13 10:48] LABS: Partial Thromboplastin Time 28.4 Sec. (24.2-36.6)
[2021-02-13] MEDS ORDERED: SODIUM CHLORIDE 0.9% 1000 ML 1,000 ML IV SCH (11:00)
--- NOTE | 2021-02-13 11:05 | Anesthesia Consultation ---
Anesthesia Consult and Med Hx - Airway Anesthetic Teeth Evaluation: Poor, Chipped ROM Head & Neck: Adequate Mental/Hyoid Distance: Adequate Mallampati Class: Class II Intubation Access Assessment: Probably Good - Pulmonary Exam CTA: Yes - Cardiac Exam Cardiac Exam: RRR - Pre-Operative Health Status ASA Pre-Surgery Classification: ASA3 Proposed Anesthetic Plan: MAC - Pulmonary Hx Smoking: No Hx Asthma: No COPD: No Hx Pneumonia: No - Cardiovascular System Hx Hypertension: Yes (CHF - EF 30% per Echo 08/04) Hx Coronary Artery Disease: Yes (non-ischemic cardiomyopathy) - Central Nervous System Hx Neuromuscular Disorder: No Hx Psychiatric Problems: No - Endocrine Hx End Stage Renal Disease: No Hx Liver Disease: No Hx Thyroid Disease: No - Hematic Hx Anemia: Yes (Hx) - Other Systems Hx Alcohol Use: No Hx Substance Use: No Hx Cancer: No
--- NOTE | 2021-02-13 11:06 | Anesthesia Day of Surgery ---
Anesthesia Day of Surgery - Day of Surgery Patient Examined: Yes Patient H&P Reviewed: Yes Patient is NPO: Yes
[2021-02-13] MEDS ORDERED: SODIUM CHLORIDE IRRI 500 ML 500 ML IR ONE ×2 (11:30→13:08)
[2021-02-13] MEDS ORDERED: LIDOCAINE (1%) 10 MG/1 ML VIAL 20 ML MDV ONE ×2 (11:30→12:40)
[2021-02-13] MEDS ORDERED: BUPIVACAINE/PF (0.5%) 5 MG/1 ML 30 ML VIAL INFILTRATI ONE ×2 (11:30→12:41)
[2021-02-13] MEDS ORDERED: ceFAZolin/Water 2 GM/20 ML 2 GM/20 ML SYRINGE IV ONE (11:34)
[2021-02-13] MEDS ORDERED: MIDAZOLAM 2 MG/2 ML INJ ONE (11:40)
[2021-02-13] MEDS ORDERED: ePHEDrine SULFATE 50 MG/1 ML INJ ONE ×2 (11:41→13:35)
[2021-02-13] MEDS ORDERED: fentaNYL 100 MCG/2 ML INJ ONE (11:41)
[2021-02-13] MEDS ORDERED: KETAMINE/STERILE WATER 50 MG/ML SYRINGE ONE (11:41)
[2021-02-13] MEDS ORDERED: SODIUM CHLORIDE 0.9% 500 ML 500 ML ONE (12:06)
[2021-02-13] MEDS ORDERED: .VANCOMYCIN VIAL 1,000 MG in SODIUM CHLORIDE IRRI 1000 ML 1,000 ML IRRIGATION ONE (13:31)
[2021-02-13] MEDS ORDERED: PHENYLEPHRINE 10 MG/1 ML INJ SDV ONE (13:34)
[2021-02-13] MEDS ORDERED: PHENYLEPHRINE/NS 1,000 MCG/10 ML SYRINGE (OR USE) IV ONE (13:35)
[2021-02-13] MEDS ORDERED: MORPHINE 4 MG/1 ML INJ IV PRN (13:53)
[2021-02-13] MEDS ORDERED: ACETAMINOPHEN 325 MG TAB PO PRN (13:53)
[2021-02-13] MEDS ORDERED: HYDROcodone/ACETAMINOPHEN 5-325 MG TAB PO PRN ×2 (13:53→14:23)
[2021-02-13] MEDS ORDERED: ONDANSETRON 4 MG/2 ML INJ IV PRN (13:53)
--- NOTE | 2021-02-13 15:15 | XRay Report ---
CHEST 1 VIEW INDICATION: Pacemaker Postop. COMPARISON: 07/25/2020 FINDINGS: Support devices: A single lead pacemaker device has been inserted which terminates in the right ventr icle Heart: Stable cardiomegaly Lungs/Pleura: There is mild segmental atelectasis in the right upper lobe. Otherwise the lungs are cl ear. No pneumothorax. Additional findings: None. IMPRESSION: Pacemaker placement. No pneumothorax. Signer Name: Samuel Lao Jr, MD Signed: 02/13/2021 3:10 PM Workstation Name: [id number]
--- NOTE | 2021-02-13 15:48 | Post Anesthesia Evaluation ---
- Post Anesthesia Evaluation Patient Participated: Yes Airway Patent: Yes Stable Respiratory Function: Yes Nausea/Vomiting: No Temp > 96.8F: Yes Pain Manageable: Yes Adequeate Hydration: Yes Anesthesia Complications: No
[2021-02-13] MEDS: ceFAZolin/NS 1 GM/50 ML 1 GM/50 ML BAG IV SCH ×2 (18:58→23:55)
[2021-02-14 13:00] VITALS: BP 144/79
--- NOTE | 2021-02-17 14:31 | Electrocardiograph Report ---
[facility] Test Date: 2021-02-13 Test Time: 09:48:25 Pat Name: KILLIAN MIDDLETON Department: Room: A492 Gender: F Shaker Repairer: GIANCARLO : 1960 Requested By: JULIO C GARCIA Order Number: [id number] Reading MD: Francisca Vargas Measurements Intervals [place] Rate: 57 P: 19 IL: 205 QRS: -36 QRSD: 130 T: 118 QT: 452 QTc: 440 Interpretive Statements Sinus rhythm Borderline prolonged IL interval Left ventricle hypertrophy with repolarization abnormalities of LVH Poor R wave progression, consider old anterior infarct No previous ECG available for comparison Electronically Signed On 02-17-2021 14:30:45 EDT by Francisca Vargas
--- NOTE | 2021-02-18 09:12 | Procedure Note ---
ELECTROPHYSIOLOGY PROCEDURE PREOPERATIVE DIAGNOSIS: Dilated cardiomyopathy. TYPE OF PROCEDURE: Single chamber cardiac defibrillator implantation. DESCRIPTION OF PROCEDURE: The patient was brought to the laboratory technology teacher. The patient was prepped and draped in the usual sterile fashion. Local anesthesia was obtained with lidocaine. Antibiotics were given prior to the procedure for surgical prophylaxis. A 3 cm incision was made over the left deltopectoral groove. Venous access was obtained via cephalic cutdown. The ventricular lead was advanced to the right ventricular apex under fluoroscopy. While observing the diaphragm under fluoroscopy, a 10-volt test applied to the leads to exclude diaphragmatic pacing. The leads were then sutured to the fascial plane with Ethibond sutures. Using blunt dissection, a pocket was then produced above the pectoral muscle plane. The pocket was irrigated with antibiotic-containing solution. Adequate electrical parameters were confirmed prior to the attachment of the pulse generator to the leads. The leads and generator were then inserted into the pocket. Closure was obtained using 2-0 Vicryl, 3-0 Vicryl, and 4-0 Vicryl. The incision was then protected with Steri-Strips, gauze, and clear adhesive dressing was applied. COMPLICATIONS: None. ASSESSMENT: Successful single chamber cardiac defibrillator implantation. PLAN: Incision check in 8-10 days. TID: [id number] RECEIPT: [id number] [facility]
== END 2021-02-14 05:05 | disposition home or self-care (01) ==
LOC: CATHLABREC 08:34 → 4A 13:59
PROVIDERS: ADMIT Internal Medicine Cardiovascular Disease; ATTEND Internal Medicine Cardiovascular Disease
DX: I42.8 Other cardiomyopathies (principal); I11.0 Hypertensive heart disease with heart failure; I50.22 Chronic systolic (congestive) heart failure; I42.0 Dilated cardiomyopathy
CPT/HCPCS: 33249; 36415; 71045; 80048; 85025; 85610; 85730; 93005; 96365; C1722; C1777; C1892; G0378; J0690; J2250; J2370; J2704; J3370; J3490; J7030; J7040; J3010; J7120; Q9967

== ENCOUNTER 2021-03-10 09:54 | Outpatient (CLI) | payer BC ==
--- NOTE | 2021-03-10 11:47 | Mammography Report ---
DIGITAL SCREENING MAMMOGRAM WITH CAD, 03/10/2021 CLINICAL INFORMATION / INDICATION: Routine screening mammography. TECHNIQUE: Digital bilateral 2D mammography was obtained in the craniocaudal and mediolateral obliqu e projections. This examination was interpreted with the benefit of Computer-Aided Detection analysis . COMPARISON: None. Prior mammograms were performed at an out of state facility over 10 years ago. FINDINGS: Breast Density: There are scattered areas of fibroglandular density. No dominant mass, suspicious calcifications, or architectural distortion in either breast. IMPRESSION: No mammographic evidence of malignancy. Follow up recommendation: Routine yearly BI-RADS Category 1: Negative. A "normal" or negative report should not discourage follow up or biopsy of a clinically significant f inding. A written summary of these findings will be mailed to the patient. The patient will be entered into a mammography reporting system which will generate a reminder letter for the patient's next appointmen t at the appropriate interval. The [employer] recommends yearly mammograms starting at age 40 and continuing as l roger as a woman is in good health. Breast MRI is recommended for women with an approximate 20-25% or greater lifetime risk of breast cancer, including women with a strong family history of breast or ova judy cancer or who have been treated for Hodgkin's disease. Signer Name: Ludy Huynh MD Signed: 03/10/2021 11:42 AM Workstation Name: [id number]
== END 2021-03-10 09:55 | disposition home or self-care (01) ==
LOC: MAMMO 09:54
PROVIDERS: ATTEND Nurse Practitioner Family
DX: Z12.31 Encounter for screening mammogram for malignant neoplasm of breast (principal)
CPT/HCPCS: 77067

== ENCOUNTER 2021-12-22 09:21 | Outpatient (CLI) | payer OTHER ==
--- NOTE | 2021-12-22 10:09 | XRay Report ---
Bilateral knees INDICATION: Knee pain FINDINGS: There is tricompartmental degenerative change in bilateral knees with joint space narrowing is most significant in the medial compartment and patellofemoral joint bilaterally. No acute fractur e. No large effusion. Signer Name: Dionisio Roberts MD Signed: 12/22/2021 10:05 AM Workstation Name: [id number]
== END 2021-12-22 09:22 | disposition home or self-care (01) ==
LOC: XRAY 09:21
PROVIDERS: ATTEND Internal Medicine
DX: M17.0 Bilateral primary osteoarthritis of knee (principal)